=== PATIENT | male | born 1955 | race Caucasian/White ===

== ENCOUNTER 2016-10-07 11:46 | Outpatient (CLI) | payer MEDICARE ==
--- NOTE | 2016-10-07 12:53 | XRAY Report ---
TWO VIEW CHEST: 10/07/2016 CLINICAL INDICATION: Cough. FINDINGS: Frontal and lateral views of the chest demonstrate a normal cardiac silhouette. There is a right upper lobe infiltrate present. No effusion or pneumothorax is seen. IMPRESSION: RIGHT UPPER LOBE INFILTRATE. JOB #: [id number] EXT JOB #:[id number]
== END 2016-10-07 11:47 | disposition home or self-care (01) ==
LOC: DI 11:46
PROVIDERS: ATTEND Internal Medicine
DX: R91.8 Other nonspecific abnormal finding of lung field (principal)
CPT/HCPCS: 71020

== ENCOUNTER 2016-11-22 08:20 | Outpatient (CLI) | payer MEDICARE ==
--- NOTE | 2016-11-22 10:05 | XRAY Report ---
CHEST TWO VIEWS: 11/22/2016 CLINICAL HISTORY: Followup pneumonia. COMPARISON: 10/07/2016. FINDINGS: Compared to the prior study, there is improved aeration of the right upper lobe with resid ual air space disease still present. The lungs are otherwise clear. The heart size is top normal. No pleural fluid or pneumothorax. Elevated right diaphragm. Degenerative change in the spine. IMPRESSION: IMPROVED CHEST X-RAY COMPARED WITH 10/07/2016 WITH RESIDUAL RIGHT UPPER LOBE AIR SPACE P ROCESS STILL PRESENT. SUGGEST REPEAT FOLLOWUP CHEST X-RAY IN FOUR TO SIX WEEKS. IF THE PNEUMONIA HAS NOT CLEARED AT THAT TIME, SUGGEST FURTHER EVALUATION BY CHEST CT. JOB #: [id number] EXT JOB #:[id number]
== END 2016-11-22 08:21 | disposition home or self-care (01) ==
LOC: DI 08:20
PROVIDERS: ATTEND Internal Medicine
DX: J18.9 Pneumonia, unspecified organism (principal)
CPT/HCPCS: 71020

== ENCOUNTER 2016-12-02 08:55 | Outpatient (CLI) | payer MEDICARE ==
[~2016-12-02 08:55] MED LIST: IOPAMIDOL-300 100 ML VIAL ONE
--- NOTE | 2016-12-02 09:48 | CT Report ---
CT OF THE CHEST WITHOUT CONTRAST: 12/02/2016 CLINICAL INDICATION: Abnormal chest x-ray, cough. TECHNIQUE: Axial CT images of the chest were obtained without intravenous contrast (the patient declined contrast). COMPARISON: Plain films of 11/22/2016, 10/07/2016. FINDINGS: The heart and great vessels demonstrate atherosclerotic calcification. No hilar or mediastinal lymphadenopathy is present. The superior segment of the right lower lobe demonstrates a band-like residual infiltrate, as well as two pulmonary nodules present, the more posterior and lateral measuring 1.8 x 1.6 cm (axial image 24), and the more anterior and medial measuring 1.6 x 1.5 cm (axial image 23). There is a 4 mm nodule in the anterolateral right upper lobe (axial image 16). No effusion or pneumothorax is present. Limited evaluation of upper abdominal structures demonstrates normal adrenal glands. Fatty infiltration of the liver is present. The osseous structures demonstrate degenerative changes. IMPRESSION: RESIDUAL INFILTRATE IN THE SUPERIOR SEGMENT OF THE RIGHT LOWER LOBE , WELL TWO PULMONARY NODULES. THESE MAY REPRESENT RESIDUAL CONSOLIDATION, BUT THE POSSIBILITY OF UNDERLYING MALIGNANCY CANNOT BE EXCLUDED. GIVEN THE INTERVAL IMPROVEMENT IN THE APPEARANCE OF THE INFILTRATE ON CHEST X-RAYS FROM TO 11/22/2016, CONSIDER FOLLOWUP CHEST CT IN SIX WEEKS TO EVALUATE FOR PERSISTENCE OF THE NODULES IN THE SUPERIOR SEGMENT OF THE RIGHT LOWER LOBE. In accordance with CT protocol optimization, one or more of the following dose reduction techniques were utilized for this exam: automated exposure control, adjustment of mA and/or KV based on patient size, or use of iterative reconstructive technique. JOB #: [id number] EXT JOB #: [id number] [facility]
== END 2016-12-02 08:56 | disposition home or self-care (01) ==
LOC: DI 08:55
PROVIDERS: ATTEND Internal Medicine
DX: R91.8 Other nonspecific abnormal finding of lung field (principal)
CPT/HCPCS: 71250

== ENCOUNTER 2017-02-03 08:26 | Outpatient (CLI) | payer MEDICARE ==
--- NOTE | 2017-02-03 11:21 | CT Report ---
CHEST CT WITHOUT CONTRAST: 02/03/2017 CLINICAL HISTORY: Followup abnormal chest CT. COMPARISON: 12/02/2016. TECHNIQUE: Axial CT images of the chest were obtained without IV contrast. Sagital and coronal reformations including coronal MIP projections. FINDINGS: Compared to the prior study, the areas of infiltrate and nodularity in the right lower lobe have continued to decrease in size but still remain. Band-like scarring radiates from the nodules. The 4 mm right upper lobe nodule also persists. No definite new nodules, pleural effusion, infiltrate, or pneumothorax is seen. Small nonspecific lymph nodes in the mediastinum are similar to previous. No pathologic adenopathy is seen. Upper abdomen also unchanged. Mild degenerative change in the spine without bone destruction. IMPRESSION: CONTINUED IMPROVEMENT IN THE CHEST CT COMPARED WITH 12/02/2016 WITH RESIDUAL CHANGES STILL PRESENT. SUGGEST A FOLLOWUP CT IN THREE MONTHS TO CONFIRM CONTINUED RESOLUTION OF THE ABOVE FINDINGS. In accordance with CT protocol optimization, one or more of the following dose reduction techniques were utilized for this exam: automated exposure control, adjustment of mA and/or KV based on patient size, or use of iterative reconstructive technique. JOB #: [id number] EXT JOB #: [id number] [facility]
== END 2017-02-03 08:27 | disposition home or self-care (01) ==
LOC: DI 08:26
PROVIDERS: ATTEND Internal Medicine
DX: R91.8 Other nonspecific abnormal finding of lung field (principal)
CPT/HCPCS: 71250

== ENCOUNTER 2018-11-18 09:02 | Outpatient (CLI) | payer MEDICARE ==
[2018-11-18 10:00] LABS: HB2 TOTAL 15.9 g/dL; HEMOGLOBIN A1C 1.18 g/dL; HEMOGLOBIN A1C % 8.9 % (4.6-6.2)
== END 2018-11-18 09:03 | disposition home or self-care (01) ==
LOC: LAB 09:02
PROVIDERS: ATTEND Internal Medicine Endocrinology, Diabetes & Metabolism
DX: E11.8 Type 2 diabetes mellitus with unspecified complications (principal); Z79.4 Long term (current) use of insulin
CPT/HCPCS: 36415; 83036